=== PATIENT | female | born 1995 | race Caucasian/White ===

== ENCOUNTER 2021-07-21 20:47 | Inpatient (IN) ==
[2021-07-21] MEDS ORDERED: DEXTROSE 50% 25 GM/50 ML VIAL IV PRN (22:48)
[2021-07-21] MEDS ORDERED: GLUCAGON 1 MG VIAL IM PRN (22:48)
[2021-07-21] MEDS ORDERED: ONDANSETRON 4 MG/2 ML VIAL IV PRN (22:48)
[2021-07-21] MEDS ORDERED: PANTOPRAZOLE 40 MG VIAL IV ONE (23:11)
[2021-07-21] MEDS: MORPHINE 2 MG/1 ML SYRINGE IV PRN (23:17)
[2021-07-21 23:46] LABS: Basophils # 0.1 10*3/uL (0.0-0.2); Basophils % 0.7 % (0.0-0.8); Eosinophils # 0.2 10*3/uL (0.0-0.87); Hematocrit 38.3 VOL% (35.7-47.0); Hemoglobin 12.2 GM/DL (12.0-16.0); Immature Granulocytes % 0.5 %; Immature Granulocytes Absolute 0.04 #; Lymphocytes # 2.9 10*3/uL (1.4-4.0); Mean Corpuscular HGB Conc 31.9 GM/DL (32-36); Mean Corpuscular Volume 86.1 FL (87-102); Mean Platelet Volume 10.7 FL (9.6-12.0); Monocytes % 7.2 % (1.7-12.7); Neutrophils % 56.6 % (38.7-73.9); Platelet Count 273 T/CUMM (130-400); Red Blood Count 4.45 MC/CUMM (3.8-5.5); Red Cell Distribution Width 13.6 % (9.3-17.3); White Blood Count 8.8 T/CUMM (4-12)
[2021-07-22] MEDS: SODIUM CHLORIDE 0.9% 1,000 ML IV SCH ×5 (00:12→19:30)
[2021-07-22 00:20] LABS: Albumin 3.4 G/DL (3.4-5.0); Bilirubin,Total 0.6 MG/DL (0.20-1.00); Calcium 7.8 MG/DL (8.5-10.1); Osmolality,Calculated 274.5 MOS/KG (273-304); Total Protein 7.1 G/DL (6.4-8.2)
[2021-07-22 05:05] LABS: Basophils % 0.5 % (0.0-0.8); Eosinophils # 0.2 10*3/uL (0.0-0.87); Hematocrit 36.8 VOL% (35.7-47.0); Hemoglobin 11.6 GM/DL (12.0-16.0); Immature Granulocytes % 0.5 %; Immature Granulocytes Absolute 0.04 #; Lymphocytes # 2.6 10*3/uL (1.4-4.0); Mean Corpuscular HGB Conc 31.5 GM/DL (32-36); Mean Platelet Volume 10.8 FL (9.6-12.0); Monocytes % 7.6 % (1.7-12.7); Neutrophils % 54.4 % (38.7-73.9); Platelet Count 220 T/CUMM (130-400); Red Blood Count 4.28 MC/CUMM (3.8-5.5); Red Cell Distribution Width 13.8 % (9.3-17.3); White Blood Count 7.4 T/CUMM (4-12)
[2021-07-22] MEDS: MORPHINE 2 MG/1 ML SYRINGE IV PRN (05:20)
[2021-07-22 05:29] LABS: Bilirubin,Total 0.8 MG/DL (0.20-1.00); Calcium 7.9 MG/DL (8.5-10.1); Osmolality,Calculated 278.3 MOS/KG (273-304); Potassium 3.5 MMOL/L (3.5-5.1); Risk Ratio 2.86; Thyroid Stimulating Hormone 1.66 uIU/ml (0.358-3.74); Total Protein 6.4 G/DL (6.4-8.2); VLDL Cholesterol 10.2 MG/DL
[2021-07-22] MEDS ORDERED: ENOXAPARIN 40 MG/0.4 ML SYRINGE SUBCUT SCH (09:00)
[2021-07-22] MEDS ORDERED: HYDROmorphone 2 MG/1 ML VIAL IV PRN (09:17)
[2021-07-22] MEDS: PANTOPRAZOLE 40 MG VIAL IV SCH ×2 (09:29→20:21)
[2021-07-22] MEDS: HYDROmorphone 2 MG/1 ML VIAL IV PRN (09:40)
[2021-07-23] MEDS: SODIUM CHLORIDE 0.9% 1,000 ML IV SCH ×2 (00:53→05:45)
[2021-07-23 05:26] LABS: Basophils % 0.5 % (0.0-0.8); Eosinophils # 0.1 10*3/uL (0.0-0.87); Eosinophils % 1.8 % (0.00-10.9); Hematocrit 33.9 VOL% (35.7-47.0); Immature Granulocytes % 0.5 %; Immature Granulocytes Absolute 0.04 #; Lymphocytes # 1.9 10*3/uL (1.4-4.0); Lymphocytes % 25.4 % (21.3-54.2); Mean Corpuscular HGB Conc 32.4 GM/DL (32-36); Mean Platelet Volume 10.6 FL (9.6-12.0); Neutrophils % 65.8 % (38.7-73.9); Platelet Count 213 T/CUMM (130-400); Red Blood Count 3.99 MC/CUMM (3.8-5.5); Red Cell Distribution Width 13.4 % (9.3-17.3); White Blood Count 7.6 T/CUMM (4-12)
[2021-07-23 05:57] LABS: Albumin 2.9 G/DL (3.4-5.0); Bilirubin,Total 0.7 MG/DL (0.20-1.00); Osmolality,Calculated 274.4 MOS/KG (273-304); Potassium 3.4 MMOL/L (3.5-5.1); Total Protein 6.5 G/DL (6.4-8.2)
[2021-07-23] MEDS ORDERED: TISSUE ADHESIVE 1 EACH APPLICATOR TOP ONE (08:06)
[2021-07-23] MEDS ORDERED: ROCURONIUM 50 MG/5 ML VIAL IV ONE (08:15)
[2021-07-23] MEDS ORDERED: ONDANSETRON 4 MG/2 ML VIAL ONE (08:15)
[2021-07-23] MEDS ORDERED: propofoL 200 MG/20 ML VIAL IV ONE (08:15)
[2021-07-23] MEDS ORDERED: LIDOCAINE 2% 5 ML VIAL ONE (08:15)
[2021-07-23] MEDS ORDERED: SUCCINYLCHOLINE 200 MG/10 ML VIAL ONE (08:15)
[2021-07-23] MEDS ORDERED: DEXAMETHASONE 4 MG/1 ML VIAL ONE (08:15)
[2021-07-23] MEDS ORDERED: fentaNYL 100 MCG/2 ML VIAL ONE ×2 (08:18→09:59)
[2021-07-23] MEDS: PANTOPRAZOLE 40 MG VIAL IV SCH (09:11)
[2021-07-23] MEDS: LACTATED RINGERS 1,000 ML IV SCH ×2 (09:13→10:34)
[2021-07-23] MEDS ORDERED: GLYCOPYRROLATE 0.4 MG/2 ML VIAL ONE (09:59)
[2021-07-23] MEDS ORDERED: NEOSTIGMINE 10 MG/10 ML VIAL ONE (09:59)
[2021-07-23] MEDS ORDERED: SEVOFLURANE 1 UNIT/15 MINUTE INH ONE (10:02)
[2021-07-23] MEDS ORDERED: ONDANSETRON 4 MG/2 ML VIAL IV PRN (10:28)
[2021-07-23] MEDS: HYDROmorphone 2 MG/1 ML VIAL IV PRN ×5 (10:32→11:55)
[2021-07-23] MEDS: MEPERIDINE 25 MG/1 ML VIAL IV PRN ×2 (10:44→10:54)
[2021-07-23 11:46] VITALS: BP 126/71
== END 2021-07-23 16:30 | disposition home or self-care (01) | DRG 418 ==
LOC: N.ED 20:47 → N.EDINP 22:48 → N.4E 07-22 00:01
PROVIDERS: ADMIT Internal Medicine; ATTEND Internal Medicine
PROC: LAPCHOL (2021-07-23 08:50)